=== PATIENT | male | born 1985 | race Caucasian/White ===

== ENCOUNTER 2017-12-24 17:26 | Emergency (ER) | payer MEDICAID, OTHER ==
[~2017-12-24] VITALS: Ht 167.6 cm; Wt 77.3 kg
[2017-12-24] MEDS ORDERED: BUPIVACAINE 0.5% IV ONE (19:15)
[2017-12-24] MEDS ORDERED: EPINEPHRINE IV ONE (19:15)
[2017-12-24] MEDS ORDERED: HYDR-3965 PO (20:50)
[2017-12-24] MEDS ORDERED: AMOX500C2 PO (20:50)
[2017-12-24 21:20] VITALS: BP 144/90
== END 2017-12-24 21:23 | disposition home or self-care (01) ==
LOC: ER 17:27
DX: S01.511A Laceration without foreign body of lip, initial encounter (principal); F17.210 Nicotine dependence, cigarettes, uncomplicated; Y04.8XXA Assault by other bodily force, initial encounter; Y93.89 Activity, other specified; Y92.89 Other specified places as the place of occurrence of the external cause; Y99.8 Other external cause status
CPT/HCPCS: 12011; 70450; 70486; 72125; 99284; A6449; J0171; J3490; L0172